=== PATIENT | female | born 1945 ===

== ENCOUNTER 2021-09-18 13:38 | Observation (INO) | payer MEDICARE ==
[2021-09-18] MEDS ORDERED: IPRATROPIUM-ALBUTEROL 3 ML NEB INHALATION STA (13:58)
[2021-09-18] MEDS ORDERED: methylPREDNISolone SOD SUCCI 125 MG/2 ML VIAL IV STA (13:58)
--- NOTE | 2021-09-18 14:14 | ED ---
General Adult HPI - General Source: patient, RN notes reviewed Mode of arrival: ambulatory Limitations: no limitations <Jose Tirado - Last Filed: 09/18/21 14:12> <Reynaldo Hein - Last Filed: 09/18/21 16:17> - General Chief complaint: Shortness of Breath Stated complaint: pneumonia Time Seen by Provider: 09/18/21 13:50 - History of Present Illness Initial comments: This a 76-year-old female presents emergency Department with chief complaint of cough congestion concerns for pneumonia. Patient states that she starts symptoms shortly after taking her grandchildren [id number]. Patient states she does have severe asthma states that she's having increasing shortness of breath, subjective fevers and chills. Patient reports she is using nebulizers, inhalers with no relief today. Patient states chest feels tight otherwise no other pain. Denies any nausea vomiting. Patient states her other family members have all been diagnosed with pneumonia. Patient had COVID-19 in the last year. Patient offers no other associated complaints. (Jose Tirado) - Related Data Home Medications Medication Instructions Recorded Confirmed Albuterol Inhaler [Ventolin Hfa 2 puff INHALATION RT-QID PRN 09/18/21 09/18/21 Inhaler] Albuterol Nebulized [Ventolin 2.5 mg INHALATION RT-QID PRN 09/18/21 09/18/21 Nebulized] Carvedilol [Coreg] 6.25 mg PO BID 09/18/21 09/18/21 Cetirizine HCl 10 mg PO DAILY 09/18/21 09/18/21 Fluticasone Propionate [Flovent 2 puff INHALATION RT-QID 09/18/21 09/18/21 Hfa 110 mcg] Furosemide [Lasix] 40 mg PO DAILY 09/18/21 09/18/21 Montelukast [Singulair] 10 mg PO HS 09/18/21 09/18/21 Omeprazole [PriLOSEC] 20 mg PO BID 09/18/21 09/18/21 Potassium Chloride ER [K-Dur 10] 10 meq PO DAILY 09/18/21 09/18/21 Pravastatin Sodium [Pravachol] 20 mg PO HS 09/18/21 09/18/21 Allergies Allergy/AdvReac Type Severity Reaction Status Date / Time No Known Allergies Allergy Verified 09/18/21 13:47 Review of Systems ROS Other: All systems not noted in ROS Statement are negative. <Jose Tirado - Last Filed: 09/18/21 14:12> ROS Other: All systems not noted in ROS Statement are negative. <Reynaldo Hein - Last Filed: 09/18/21 16:17> ROS Statement: Those systems with pertinent positive or pertinent negative responses have been documented in the HPI. Past Medical History Past Medical History: Asthma, COPD, GERD/Reflux, Hyperlipidemia, Hypertension Additional Past Medical History / Comment(s): covid 10/02 History of Any Multi-Drug Resistant Organisms: None Reported Past Surgical History: Cholecystectomy, Joint Replacement Additional Past Surgical History / Comment(s): ramírez knee, rt arm Past Psychological History: No Psychological Hx Reported Smoking Status: Never smoker Past Alcohol Use History: None Reported Past Drug Use History: None Reported <Jose Tirado - Last Filed: 09/18/21 14:12> General Exam Limitations: no limitations General appearance: alert, in no apparent distress Head exam: Present: atraumatic, normocephalic, normal inspection Eye exam: Present: normal appearance, PERRL, EOMI. Absent: scleral icterus, conjunctival injection, periorbital swelling ENT exam: Present: normal exam, normal oropharynx, mucous membranes moist Neck exam: Present: normal inspection, full ROM. Absent: tenderness, meningismus, lymphadenopathy Respiratory exam: Present: respiratory distress, wheezes, decreased breath sounds. Absent: normal lung sounds bilaterally, rales, rhonchi, stridor Cardiovascular Exam: Present: regular rate, normal rhythm, normal heart sounds. Absent: systolic murmur, diastolic murmur, rubs, gallop, clicks <Jose Tirado - Last Filed: 09/18/21 14:12> Course Vital Signs 09/18/21 09/18/21 09/18/21 13:43 14:09 15:00 Temperature 98.9 F Pulse Rate 75 76 78 Respiratory 26 H 20 Rate Blood Pressure 111/65 133/84 O2 Sat by Pulse 96 96 Oximetry Medical Decision Making - Lab Data Result diagrams: 09/18/21 14:39 09/18/21 14:39 <Reynaldo Hein - Last Filed: 09/18/21 16:17> - Medical Decision Making [facility] [place] by previous shift physician botany laboratory assistant, Jose Tirado. Briefly, patient is a 76-year-old female past medical history of asthma presents emergency department for shortness of breath cough or congestion. Physical presentation consistent with asthma exacerbation. Plan at sign out was to follow up with pending labs and x-ray. Patient given breathing treatment still persistently dyspneic. Laboratory evaluation obtained. CBC, coag panel, all IS UNREMARKABLE. FOR PANEL VIRAL PCR IS NEGATIVE FOR INFLUENZA, RSV AND CORONAVIRUS. CHEST X-RAY SHOWS NO INFILTRATES. PATIENT REEVALUATED AT BEDSIDE STILL VERY MILDLY DYSPNEIC. PATIENT BE ADMITTED OBSERVATION FOR CONTINUED BREATHING TREATMENTS, pulmonology CONSULTATION. (Reynaldo Hein) - Lab Data Lab Results 09/18/21 09/18/21 09/18/21 Range/Units 14:39 14:39 14:39 WBC 5.1 (3.8-10.6) k/uL RBC 4.33 (3.80-5.40) m/uL Hgb 12.9 (11.4-16.0) gm/dL Hct 38.7 (34.0-46.0) % MCV 89.4 (80.0-100.0) fL MCH 29.7 (25.0-35.0) pg MCHC 33.2 (31.0-37.0) g/dL RDW 13.6 (11.5-15.5) % Plt Count 140 L (150-450) k/uL MPV 10.4 Neutrophils % 65 % Lymphocytes % 21 % Monocytes % 7 % Eosinophils % 4 % Basophils % 0 % Neutrophils # 3.3 (1.3-7.7) k/uL Lymphocytes # 1.0 (1.0-4.8) k/uL Monocytes # 0.4 (0-1.0) k/uL Eosinophils # 0.2 (0-0.7) k/uL Basophils # 0.0 (0-0.2) k/uL PT 9.9 (9.0-12.0) sec INR 0.9 (<1.2) APTT 24.9 (22.0-30.0) sec Sodium 139 (137-145) mmol/L Potassium 4.4 (3.5-5.1) mmol/L Chloride 105 (98-107) mmol/L Carbon Dioxide 26 (22-30) mmol/L Anion Gap 8 mmol/L BUN 13 (7-17) mg/dL Creatinine 0.91 (0.52-1.04) mg/dL Est GFR (CKD-EPI)AfAm 71 (>60 ml/min/1.73 sqM) Est GFR (CKD-EPI)NonAf 62 (>60 ml/min/1.73 sqM) Glucose 99 (74-99) mg/dL Plasma Lactic Acid Rick (0.7-2.0) mmol/L Calcium 8.7 (8.4-10.2) mg/dL Magnesium 2.0 (1.6-2.3) mg/dL Total Bilirubin 0.4 (0.2-1.3) mg/dL AST 30 (14-36) U/L ALT 14 (4-34) U/L Alkaline Phosphatase 91 (38-126) U/L Troponin I (0.000-0.034) ng/mL NT-Pro-B Natriuret Pep pg/mL Total Protein 6.4 (6.3-8.2) g/dL Albumin 3.7 (3.5-5.0) g/dL Influenza Type A (PCR) (Not Detectd) Influenza Type B (PCR) (Not Detectd) RSV (PCR) (Not Detectd) SARS-CoV-2 (PCR) (Not Detectd) 09/18/21 09/18/21 09/18/21 Range/Units 14:39 14:39 14:39 WBC (3.8-10.6) k/uL RBC (3.80-5.40) m/uL Hgb (11.4-16.0) gm/dL Hct (34.0-46.0) % MCV (80.0-100.0) fL MCH (25.0-35.0) pg MCHC (31.0-37.0) g/dL RDW (11.5-15.5) % Plt Count (150-450) k/uL MPV Neutrophils % % Lymphocytes % % Monocytes % % Eosinophils % % Basophils % % Neutrophils # (1.3-7.7) k/uL Lymphocytes # (1.0-4.8) k/uL Monocytes # (0-1.0) k/uL Eosinophils # (0-0.7) k/uL Basophils # (0-0.2) k/uL PT (9.0-12.0) sec INR (<1.2) APTT (22.0-30.0) sec Sodium (137-145) mmol/L Potassium (3.5-5.1) mmol/L Chloride (98-107) mmol/L Carbon Dioxide (22-30) mmol/L Anion Gap mmol/L BUN (7-17) mg/dL Creatinine (0.52-1.04) mg/dL Est GFR (CKD-EPI)AfAm (>60 ml/min/1.73 sqM) Est GFR (CKD-EPI)NonAf (>60 ml/min/1.73 sqM) Glucose (74-99) mg/dL Plasma Lactic Acid Rick 0.9 (0.7-2.0) mmol/L Calcium (8.4-10.2) mg/dL Magnesium (1.6-2.3) mg/dL Total Bilirubin (0.2-1.3) mg/dL AST (14-36) U/L ALT (4-34) U/L Alkaline Phosphatase (38-126) U/L Troponin I <0.012 (0.000-0.034) ng/mL NT-Pro-B Natriuret Pep 563 pg/mL Total Protein (6.3-8.2) g/dL Albumin (3.5-5.0) g/dL Influenza Type A (PCR) (Not Detectd) Influenza Type B (PCR) (Not Detectd) RSV (PCR) (Not Detectd) SARS-CoV-2 (PCR) (Not Detectd) 09/18/21 Range/Units 14:39 WBC (3.8-10.6) k/uL RBC (3.80-5.40) m/uL Hgb (11.4-16.0) gm/dL Hct (34.0-46.0) % MCV (80.0-100.0) fL MCH (25.0-35.0) pg MCHC (31.0-37.0) g/dL RDW (11.5-15.5) % Plt Count (150-450) k/uL MPV Neutrophils % % Lymphocytes % % Monocytes % % Eosinophils % % Basophils % % Neutrophils # (1.3-7.7) k/uL Lymphocytes # (1.0-4.8) k/uL Monocytes # (0-1.0) k/uL Eosinophils # (0-0.7) k/uL Basophils # (0-0.2) k/uL PT (9.0-12.0) sec INR (<1.2) APTT (22.0-30.0) sec Sodium (137-145) mmol/L Potassium (3.5-5.1) mmol/L Chloride (98-107) mmol/L Carbon Dioxide (22-30) mmol/L Anion Gap mmol/L BUN (7-17) mg/dL Creatinine (0.52-1.04) mg/dL Est GFR (CKD-EPI)AfAm (>60 ml/min/1.73 sqM) Est GFR (CKD-EPI)NonAf (>60 ml/min/1.73 sqM) Glucose (74-99) mg/dL Plasma Lactic Acid Rick (0.7-2.0) mmol/L Calcium (8.4-10.2) mg/dL Magnesium (1.6-2.3) mg/dL Total Bilirubin (0.2-1.3) mg/dL AST (14-36) U/L ALT (4-34) U/L Alkaline Phosphatase (38-126) U/L Troponin I (0.000-0.034) ng/mL NT-Pro-B Natriuret Pep pg/mL Total Protein (6.3-8.2) g/dL Albumin (3.5-5.0) g/dL Influenza Type A (PCR) Not Detected (Not Detectd) Influenza Type B (PCR) Not Detected (Not Detectd) RSV (PCR) Not Detected (Not Detectd) SARS-CoV-2 (PCR) Not Detected (Not Detectd) Disposition <Jose Tirado - Last Filed: 09/18/21 14:12> <Reynaldo Hein - Last Filed: 09/18/21 16:17> Clinical Impression: Asthma Disposition: ADMITTED IP TO THIS HOSP Condition: Fair Referrals: Modesto Quinonez MD [Primary Care Provider] - 1-2 days
[2021-09-18 14:50] LABS: Basophils % (A) 0 %; Eosinophils # (A) 0.2 k/uL (0-0.7); Eosinophils % (A) 4 %; HCT 38.7 % (34.0-46.0); HGB 12.9 gm/dL (11.4-16.0); Lymphocytes % (A) 21 %; MCH 29.7 pg (25.0-35.0); MCHC 33.2 g/dL (31.0-37.0); MCV 89.4 fL (80.0-100.0); Mean Platelet Volume 10.4; Monocytes # (A) 0.4 k/uL (0-1.0); Monocytes % (A) 7 %; Neutrophils # (A) 3.3 k/uL (1.3-7.7); Neutrophils % (A) 65 %; Platelet Count 140 k/uL (150-450); RBC 4.33 m/uL (3.80-5.40); RDW 13.6 % (11.5-15.5); WBC 5.1 k/uL (3.8-10.6)
[2021-09-18 14:59] LABS: Albumin 3.7 g/dL (3.5-5.0); Calcium 8.7 mg/dL (8.4-10.2); Total Bilirubin 0.4 mg/dL (0.2-1.3); Total Protein 6.4 g/dL (6.3-8.2)
[2021-09-18 15:00] LABS: INR 0.9 (<1.2); Partial Thromboplastin Time 24.9 sec (22.0-30.0); Prothrombin Time 9.9 sec (9.0-12.0)
[2021-09-18 15:01] LABS: Potassium 4.4 mmol/L (3.5-5.1)
--- NOTE | 2021-09-18 15:11 | XR ---
EXAMINATION TYPE: XR chest 2V DATE OF EXAM: 09/18/2021 COMPARISON: NONE HISTORY: Cough and congestion TECHNIQUE: 2 views FINDINGS: There is large hiatal hernia. Lungs are clear of infiltrate. There is no heart failure. The re is osteopenia. There is no evidence of pleural fluid. There is deformity right humeral neck consis tent with an old fracture. IMPRESSION: Large hiatal hernia. No acute lung disease.
[2021-09-18] MEDS ORDERED: DEXAMETHASONE SOD PHOSPHATE 10 MG/ML 1 ML VIAL IV STA (16:07)
[2021-09-18 17:05] VITALS: RESP 18
[2021-09-18] MEDS: IPRATROPIUM-ALBUTEROL 3 ML NEB INHALATION SCH (19:21)
[2021-09-18] MEDS ORDERED: IPRATROPIUM-ALBUTEROL 3 ML NEB INHALATION PRN (19:24)
[2021-09-18] MEDS: ACETAMINOPHEN TAB 325 MG TAB PO PRN (20:18)
[2021-09-18] MEDS: PANTOPRAZOLE 40 MG TABLET PO SCH (20:24)
[2021-09-18] MEDS ORDERED: PRAVASTATIN SODIUM 20 MG TAB PO SCH (21:00)
[2021-09-18] MEDS ORDERED: MONTELUKAST 10 MG TAB PO SCH (21:00)
--- NOTE | 2021-09-18 23:02 | P.HPIM ---
History of Present Illness H&P Date: 09/18/21 Chief Complaint: Shortness of breath Patient is a 76-year-old female with a known history of hypertension, hyperlipidemia, GERD, asthma since childhood, history of COVID-19 infection in September 2020 presents to ER with complaints of worsening cough, congestion, chest tightness and concern for pneumonia. Patient symptoms started since last after taking her children [id number]. Patient states that all her grandchildren was diagnosed with viral infection, Covid test was negative.. Patient having subjective fevers and chills. She was using albuterol inhaler and nebulizations at home without much improvement. Presented to ER for evaluation. Denies any complaints of chest pain. No nausea vomiting. No abdominal pain or diarrhea. No headache or dizziness or lightheadedness. Chest x-ray showed large hiatal hernia. No acute lung disease. Patient was tachypneic with with respiratory rate 26 on admission pulse ox 96% on 2 L oxygen. Laboratory data showed WBC 5.1 hemoglobin 12.9 and platelets 140 Sodium 139 potassium 4.4 BUN 39 creatinine 0.91 and troponin 0 0.012, proBNP 563 and COVID-19 PCR and influenza AB and RSV negative. Review of Systems Constitutional: Subjective fevers chills and generalized weakness.. Abdomen: Patient denied nausea vomiting and diarrhea and abdominal pain. Cardiovascular: Patient denies any chest pain or short of breath no palpitations. Respiratory: Patient does have cough congestion and chest tightness. Shortness of breath. Neurologic: Patient denied any numbness or tingling headache. Musculoskeletal: Patient denies any complaints of joint swelling or deformity. Skin: Negative Psychiatric: Negative Endocrine: No heat or cold intolerance. No recent weight gain. Genitourinary: No dysuria or hematuria. All other 14 point ROS negative except the above Past Medical History Past Medical History: Asthma, COPD, GERD/Reflux, Hyperlipidemia, Hypertension Additional Past Medical History / Comment(s): covid 10/02 History of Any Multi-Drug Resistant Organisms: None Reported Past Surgical History: Cholecystectomy, Joint Replacement Additional Past Surgical History / Comment(s): ramírez knee, rt arm, cataract surgery Past Anesthesia/Blood Transfusion Reactions: No Reported Reaction Past Psychological History: No Psychological Hx Reported Smoking Status: Never smoker Past Alcohol Use History: None Reported Past Drug Use History: None Reported Medications and Allergies Home Medications Medication Instructions Recorded Confirmed Type Albuterol Inhaler [Ventolin Hfa 2 puff INHALATION RT-QID PRN 09/18/21 09/18/21 History Inhaler] Albuterol Nebulized [Ventolin 2.5 mg INHALATION RT-QID PRN 09/18/21 09/18/21 History Nebulized] Carvedilol [Coreg] 6.25 mg PO BID 09/18/21 09/18/21 History Cetirizine HCl 10 mg PO DAILY 09/18/21 09/18/21 History Fluticasone Propionate [Flovent 2 puff INHALATION RT-QID 09/18/21 09/18/21 History Hfa 110 mcg] Furosemide [Lasix] 40 mg PO DAILY 09/18/21 09/18/21 History Montelukast [Singulair] 10 mg PO HS 09/18/21 09/18/21 History Omeprazole [PriLOSEC] 20 mg PO BID 09/18/21 09/18/21 History Potassium Chloride ER [K-Dur 10] 10 meq PO DAILY 09/18/21 09/18/21 History Pravastatin Sodium [Pravachol] 20 mg PO HS 09/18/21 09/18/21 History Allergies Allergy/AdvReac Type Severity Reaction Status Date / Time No Known Allergies Allergy Verified 09/18/21 13:47 Physical Exam Vitals: Vital Signs Temp Pulse Pulse Pulse Resp BP BP 09/18/21 19:32 96 09/18/21 19:21 88 09/18/21 18:50 98.1 F 79 18 103/65 09/18/21 18:09 97.9 F 88 18 125/82 09/18/21 17:25 98.4 F 09/18/21 17:00 73 18 133/74 09/18/21 16:00 74 20 129/89 09/18/21 15:00 78 20 133/84 09/18/21 14:09 76 09/18/21 13:43 98.9 F 75 26 H 111/65 Pulse Ox 09/18/21 19:32 09/18/21 19:21 09/18/21 18:50 95 09/18/21 18:09 97 09/18/21 17:25 09/18/21 17:00 98 09/18/21 16:00 98 09/18/21 15:00 96 09/18/21 14:09 09/18/21 13:43 96 Intake and Output 09/18/21 09/18/21 09/18/21 06:59 14:59 22:59 Other: Weight 89.358 kg 89.358 kg PHYSICAL EXAMINATION: Patient is lying in the bed comfortably, no acute distress, awake alert and oriented.. HEENT: Normocephalic. Neck is supple. Pupils reactive. Nostrils clear. Oral cavity is moist. Neck reveals no JVD, carotid bruits, or thyromegaly. CHEST EXAMINATION: Trachea is central. Symmetrical expansion. Bilateral diminished air entry and wheezing diffusely.. CARDIAC: Normal S1, S2 with no gallops. No murmurs ABDOMEN: Soft. Bowel sounds normal. No organomegaly. No abdominal bruits. Extremities: reveal no edema. No clubbing or cyanosis Neurologically awake, alert, oriented x3 with well-coordinated movements. No focal deficits noted Skin: No rash or skin lesions. Psychiatric: Cooperative. Nonsuicidal Musculoskeletal: No joint swelling or deformity. Normal range of motion. Results CBC & Chem 7: 09/18/21 14:39 09/18/21 14:39 Labs: Abnormal Lab Results - Last 24 Hours (Table) 09/18/21 Range/Units 14:39 Plt Count 140 L (150-450) k/uL Thrombosis Risk Factor Assmnt - DVT/VTE Prophylaxis DVT/VTE Prophylaxis: Pharmacologic Prophylaxis ordered - Choose All That Apply Each Risk Factor Represents 3 Points: Age 75 years or older Thrombosis Risk Factor Assessment Total Risk Factor Score: 3 Thrombosis Risk Factor Assessment Level: Moderate Risk Assessment and Plan Assessment: Acute asthma exacerbation Mild persistent asthma at baseline. History of COVID-19 infection #2020 Hypertension Hyperlipidemia GERD and hiatal hernia, large Childhood asthma DVT prophylaxis with heparin subcu Obesity with BMI 38.5 Plan: Patient will be continued on Solu-Medrol 40 mg every 6 hourly and duo nebs. Oxygen supplementation as needed. Continue with GI and DVT prophylaxis. Symptomatic management. Follow-up closely.
[2021-09-18] MEDS: methylPREDNISolone SOD SUCCI 40 MG/ML 1 ML VIAL IV SCH (23:18)
[2021-09-18] MEDS: HEPARIN SODIUM,PORCINE/PF 5,000 UNIT/0.5 ML SYRINGE SQ SCH (23:19)
[2021-09-19] MEDS: methylPREDNISolone SOD SUCCI 40 MG/ML 1 ML VIAL IV SCH (05:55)
[2021-09-19 07:03] VITALS: BP 113/70; TEMP 98
[2021-09-19] MEDS: IPRATROPIUM-ALBUTEROL 3 ML NEB INHALATION SCH ×2 (07:37→11:01)
[2021-09-19] MEDS: HEPARIN SODIUM,PORCINE/PF 5,000 UNIT/0.5 ML SYRINGE SQ SCH (08:21)
[2021-09-19] MEDS: PANTOPRAZOLE 40 MG TABLET PO SCH (08:21)
[2021-09-19] MEDS: ACETAMINOPHEN TAB 325 MG TAB PO PRN (10:49)
[2021-09-19 11:03] VITALS: PULSE 90
--- NOTE | 2021-09-19 14:05 | P.CNPUL ---
History of Present Illness Consult date: 09/19/21 Requesting physician: Tootie Dumont Reason for consult: dyspnea, cough, asthma Chief complaint: Shortness of breath. History of present illness: Pulmonary consult dated 09/19/2021. 76-year-old female, with a long-standing history of chronic bronchial asthma. She presents to the emergency department on September 18, complaining of increasing shortness of breath, chest congestion, tightness, wheezing, and generally not feeling well. She thought she might have pneumonia. She started having symptoms a couple days back, after trick or treating with grandchildren. The patient denies any fever or chills. She does cough and some clear phlegm. She also denies any chest pain. The patient does take normal as medications home including a neurology inhaler, Singulair, albuterol updrafts, and Flovent. The patient's asthma seems to be reasonably well controlled most of the time. Currently, she's feeling much better, and mentions that she would like to be discharged home if possible. In addition to asthma, the patient has a history of gastroesophageal reflux disease, hyperlipidemia, and hypertension. White count 5.1, hemoglobin, hematocrit normal, and platelet count 140,000. Sodium 1 39, potassium 4.4, chlorides 105, CO2 26, anion gap 8, BUN 13, creatinine 0.91. The rest of her comprehensive metabolic profile was negative. Chest x-ray showed no acute pulmonary process, and a large hiatal hernia. Review of Systems REVIEW OF SYSTEMS: CONSTITUTIONAL: [Negative.] NEUROLOGIC: [ Negative.] HEENT: [ Negative.] CARDIAC: [Negative.] PULMONARY: Shortness of breath, chest tightness, cough, wheezing, and minimal phlegm production. GI: [Negative.] : [Negative.] RHEUMATOLOGIC: [ Negative.] IMMUNOLOGIC: [ Negative.] ENDOCRINE: [Negative. ] DERMATOLOGIC: [Negative.] Past Medical History Past Medical History: Asthma, COPD, GERD/Reflux, Hyperlipidemia, Hypertension Additional Past Medical History / Comment(s): covid 10/02 History of Any Multi-Drug Resistant Organisms: None Reported Past Surgical History: Cholecystectomy, Joint Replacement Additional Past Surgical History / Comment(s): ramírez knee, rt arm, cataract surgery Past Anesthesia/Blood Transfusion Reactions: No Reported Reaction Past Psychological History: No Psychological Hx Reported Smoking Status: Never smoker Past Alcohol Use History: None Reported Past Drug Use History: None Reported Medications and Allergies Home Medications Medication Instructions Recorded Confirmed Type Albuterol Inhaler [Ventolin Hfa 2 puff INHALATION RT-QID PRN 09/18/21 09/18/21 History Inhaler] Albuterol Nebulized [Ventolin 2.5 mg INHALATION RT-QID PRN 09/18/21 09/18/21 History Nebulized] Carvedilol [Coreg] 6.25 mg PO BID 09/18/21 09/18/21 History Cetirizine HCl 10 mg PO DAILY 09/18/21 09/18/21 History Fluticasone Propionate [Flovent 2 puff INHALATION RT-QID 09/18/21 09/18/21 History Hfa 110 mcg] Furosemide [Lasix] 40 mg PO DAILY 09/18/21 09/18/21 History Montelukast [Singulair] 10 mg PO HS 09/18/21 09/18/21 History Omeprazole [PriLOSEC] 20 mg PO BID 09/18/21 09/18/21 History Potassium Chloride ER [K-Dur 10] 10 meq PO DAILY 09/18/21 09/18/21 History Pravastatin Sodium [Pravachol] 20 mg PO HS 09/18/21 09/18/21 History predniSONE 0 mg PO DIRECTED 16 Days #40 tab 09/19/21 Rx Allergies Allergy/AdvReac Type Severity Reaction Status Date / Time No Known Allergies Allergy Verified 09/18/21 13:47 Physical Exam Osteopathic Statement: *. No significant issues noted on an osteopathic structural exam other than those noted in the History and Physical/Consult. Vitals: Vital Signs Temp Pulse Pulse Pulse Resp BP BP 09/19/21 11:11 90 09/19/21 11:01 90 09/19/21 07:49 92 09/19/21 07:37 92 09/19/21 07:00 98 F 74 18 113/70 09/19/21 01:20 EDT 97.9 F 88 18 105/62 09/18/21 19:32 96 09/18/21 19:21 88 09/18/21 18:50 98.1 F 79 18 103/65 09/18/21 18:09 97.9 F 88 18 125/82 09/18/21 17:25 98.4 F 09/18/21 17:00 73 18 133/74 09/18/21 16:00 74 20 129/89 09/18/21 15:00 78 20 133/84 Pulse Ox 09/19/21 11:11 09/19/21 11:01 09/19/21 07:49 09/19/21 07:37 09/19/21 07:00 95 09/19/21 01:20 EDT 91 L 09/18/21 19:32 09/18/21 19:21 09/18/21 18:50 95 09/18/21 18:09 97 09/18/21 17:25 09/18/21 17:00 98 09/18/21 16:00 98 09/18/21 15:00 96 Intake and Output 09/18/21 09/19/21 09/19/21 23:59 06:59 14:59 Other: # Voids Weight No acute distress, oriented 3. No audible wheezing, use of accessory muscles, or conversational dyspnea. The patient is on room air. HEENT examination is grossly unremarkable. Neck supple. Full range of motion. No adenopathy thyromegaly or neck vein distention. Cardiovascular examination reveals regular rhythm rate. S1-S2 normal. No S3 or S4. No discernible murmur noted. Heart rate is 83 bpm. Lungs reveal mild expiratory wheezes and rhonchi. Breath sounds are equal bilaterally. There are no crackles. There is prolongation on forced maneuver. Abdomen soft bowel sounds are heard. No masses or tenderness. Extremities are intact. No cyanosis clubbing or edema. Skin is without rash or lesion. Neurologic examination is brief but nonfocal. Results - Laboratory Findings CBC and BMP: 09/18/21 14:39 09/18/21 14:39 PT/INR, D-dimer PT 9.9 sec (9.0-12.0) 09/18/21 14:39 INR 0.9 (<1.2) 09/18/21 14:39 Abnormal lab findings: Abnormal Labs 09/18/21 14:39 Plt Count 140 L - Diagnostic Findings Chest x-ray: image reviewed Assessment and Plan Assessment: Acute exacerbation of chronic bronchial asthma, without acute infection. Prior history of coronavirus infection. History of hypertension. History of hyperlipidemia. History of gastroesophageal reflux disease. Large hiatal hernia. Lifelong nontobacco use. Plan: Plan dated 09/19/2021. The patient's doing well. She verbalizes that she wants to be discharged home. She has all the appropriate medications at home including albuterol updrafts, albuterol inhaler, Singulair, and Flovent. I would recommend that she be discharged home on some prednisone, starting off with 40 mg a day for 3 or 4 days, and reducing the dose by 10 mg every fourth or fifth day, until the prednisone is weaned off. She should follow-up with her primary doctor. I told that I be happy to see her in the office after discharge. No additional recommendations are made. I'm not sure that she will be discharged today. We'll leave that up to the primary. Time with Patient: Greater than 30
== END 2021-09-19 13:52 | disposition home or self-care (01) ==
LOC: EC 13:38 → 6NMEDSUR 16:06
PROVIDERS: ADMIT Internal Medicine; ATTEND Internal Medicine
DX: J45.31 Mild persistent asthma with (acute) exacerbation (principal); I10 Essential (primary) hypertension; K21.9 Gastro-esophageal reflux disease without esophagitis; E78.5 Hyperlipidemia, unspecified; J44.9 Chronic obstructive pulmonary disease, unspecified; K44.9 Diaphragmatic hernia without obstruction or gangrene; Z68.38 Body mass index [BMI] 38.0-38.9, adult; E66.9 Obesity, unspecified; Z20.828 Contact with and (suspected) exposure to other viral communicable diseases; Z20.822 Contact with and (suspected) exposure to COVID-19; Z79.51 Long term (current) use of inhaled steroids; Z79.899 Other long term (current) drug therapy; Z86.16 Personal history of COVID-19; Z90.49 Acquired absence of other specified parts of digestive tract; Z96.653 Presence of artificial knee joint, bilateral; Z98.49 Cataract extraction status, unspecified eye
CPT/HCPCS: 96376 ×2; 96372 ×2; 96374; 96375; 99285; 36415; 94640 ×4; 93005; 83880; 80053; 83605; 83735; 84484; 85025; 85610; 85730; 87636; 71046; G0378 ×2; J1100; J2920 ×2; J2930; J1644 ×2